=== PATIENT | male | born 1990 | race Caucasian/White ===

== ENCOUNTER 2022-09-06 11:54 | Emergency (ER) | payer OTHER ==
[2022-09-06 12:15] VITALS: BP 108/62; PULSE 103
[2022-09-06] MEDS: Orphenadrine 60 MG/2 ML Inj IM ONE (13:08)
[2022-09-06] MEDS: Ketorolac 30 MG/ML SDV IM ONE (13:08)
== END 2022-09-06 13:17 | disposition home or self-care (01) ==
LOC: DL.ED 11:54
DX: S93.401A Sprain of unspecified ligament of right ankle, initial encounter (principal); S80.01XA Contusion of right knee, initial encounter; S70.01XA Contusion of right hip, initial encounter; F17.210 Nicotine dependence, cigarettes, uncomplicated; X50.1XXA Overexertion from prolonged static or awkward postures, initial encounter; Y99.0 Civilian activity done for income or pay
CPT/HCPCS: 73560-RT; 73610-RT; 96372; 99282; 99283; J1885; J2360

== ENCOUNTER 2023-10-26 02:09 | Emergency (ER) | payer MEDICAID ==
[2023-10-26 03:12] LABS: BASOPHILS PERCENT AUTO 0.5 % (0.0-1.0); EOSINOPHILS PERCENT AUTO 1.5 % (1.0-3.0); HEMATOCRIT 41.1 % (40.0-54.0); HEMOGLOBIN 14.3 g/dL (14.0-18.0); LYMPHOCYTES PERCENT AUTO 29.1 % (20.5-50.1); MEAN CORPUSCULAR HEMOGLOBIN 30.6 pg (27.0-34.0); MEAN CORPUSCULAR HGB CONC 34.8 g/dL (33.0-35.0); MEAN CORPUSCULAR VOLUME 87.8 fL (80-100); MONOCYTES PERCENT AUTO 9.8 % (2-8); NEUTROPHILS PERCENT AUTO 59.1 % (42.2-75.2); PLATELET COUNT,PLT 242 10^3/uL (150-450); RED BLOOD CELL COUNT 4.68 10^6/uL (4.6-6.2); WHITE BLOOD CELL COUNT,WBC 11.3 10^3/uL (5.0-10.0)
[2023-10-26 03:36] LABS: PROTHROMBIN TIME 10.5 SEC (9.0-12.0); PTT,PARTIAL THROMBOPLSTIN TIME 24.4 SEC (22.0-34.0)
[2023-10-26 03:38] VITALS: BP 123/73; PULSE 85
[2023-10-26 03:49] LABS: D-DIMER QUANTITATIVE < 100 ng/mL (0-400)
[2023-10-26 03:53] LABS: AMPHETAMINES,URINE NEGATIVE (NEGATIVE); BARBITURATES,URINE NEGATIVE (NEGATIVE); BENZODIAZEPINE,URINE NEGATIVE (NEGATIVE); MDMA (ECSTASY), URINE NEGATIVE (NEGATIVE); METHADONE,URINE NEGATIVE (NEGATIVE); METHAMPHETAMINES,URINE NEGATIVE (NEGATIVE); OPIATES,URINE NEGATIVE (NEGATIVE); OXYCODONE,URINE NEGATIVE (NEGATIVE); PHENCYCLIDINE,URINE NEGATIVE (NEGATIVE); TCA,URINE NEGATIVE (NEGATIVE)
[2023-10-26] MEDS: HYDROmorphone 1 MG/ML Syringe IVPUSH ONE (04:33)
[2023-10-26 04:49] LABS: A/G RATIO 1.2; ALANINE AMINOTRANSFERASE,ALT 27 U/L (16-63); ALBUMIN 3.7 g/dL (3.4-5.0); ALKALINE PHOSPHATASE 66 U/L (46-116); ANION GAP 12.2 mEq/L (7-13); ASPARTATE AMNIOTRANSFERASE,AST 19 U/L (15-37); BILIRUBIN TOTAL 0.7 mg/dL (0.2-1.0); BLOOD UREA NITROGEN,BUN 14 mg/dL (7-18); BUN/CREATININE RATIO 14.3 (No establ ref range); CALCIUM 8.9 mg/dL (8.5-10.1); CARBON DIOXIDE,CO2 28 mmol/L (21-32); CHLORIDE,CL 105 mmol/L (98-107); CREATINE KINASE,CK 243 U/L (39-308); CREATININE 0.98 mg/dL (0.70-1.30); GLUCOSE RANDOM 124 mg/dL (70-99); MAGNESIUM 2.1 mg/dL (1.8-2.4); POTASSIUM,K 3.2 mmol/L (3.5-5.1); PROTEIN TOTAL,TP 6.7 g/dL (6.4-8.2); SODIUM,NA 142 mmol/L (136-145); URIC ACID 3.4 mg/dL (3.5-7.2)
[2023-10-26 04:51] LABS: ESTIMATED GFR 104 mL/min (>=60)
[2023-10-26] MEDS: Potassium Chloride 10 MEQ Tab.ER PO ONE ×2 (05:25→05:26)
== END 2023-10-26 05:30 | disposition home or self-care (01) ==
LOC: DL.ED 02:09
DX: S09.90XA Unspecified injury of head, initial encounter (principal); E87.6 Hypokalemia; W19.XXXA Unspecified fall, initial encounter
CPT/HCPCS: 36415; 70450; 72125; 80053; 80305-QW; 80307; 82550; 83735; 84550; 85025; 85379; 85610; 85730; 96374; 99284; 99284-25; A9270-GY; J1170